=== PATIENT | female | born 1950 | race Caucasian/White ===

== ENCOUNTER → 2016-08-07 | Outpatient (CLI) | payer OTHER ==
[~2016-08-07] MED LIST: HYDROCODONE BI473 M1; LORTAB ELIXIR480 ML PO; PRILOSEC PO; REFRESH DRY EYE15 ML OU; RESTASIS32 EA OP
--- NOTE | ~2016-08-07 | EKG ---
PATIENT: FILOMENA SOARES UNIT #: [id number] Ventricular Rate: 72 BPM Atrial Rate: 72 BPM P-R Interval: 176 ms QRS Duration: 108 ms Q-T Interval: 414 ms QTC Calculation(Bezet): 453 ms P [place]: 57 degrees Calculated R [place]: -19 degrees Calculated T [place]: 33 degrees Diagnosis Line: Normal sinus rhythm Diagnosis Line: Normal ECG Diagnosis Line: When compared with ECG of 10-APR-2012 08:26, Diagnosis Line: No significant change was found Diagnosis Line: Confirmed by PAZ SANCHEZ MD ([id number]) on 08/08/2016 Diagnosis Line: 6:20:58 PM INTERPRETING MD: LAURA DOBSON
[2016-08-07 14:33] LABS: HEMATOCRIT 42.1 % (35.0-45.0); HEMOGLOBIN 14.4 gm/dL (12.0-16.0); MEAN CELL VOLUME 92.1 FL (83-96); MEAN CORPUSCULAR HEMOGLOBIN 31.4 PG (28-34); MEAN CORPUSCULAR HGB CONC 34.1 g/dL (30-36); MEAN PLATELET VOLUME 8.4 FL (6.5-11.5); RED BLOOD COUNT 4.57 X10e (3.90-5.30); RED CELL DISTRIBUTION WIDTH 14.6 % (11.0-15.5); WHITE BLOOD COUNT 13.5 X10e3 (4.0-10.5)
[2016-08-07 15:17] LABS: ALBUMIN SERUM 4.1 g/dL (3.5-5.0); BILIRUBIN,TOTAL 0.4 mg/dL (0.2-2.0); BUN/CREATININE RATIO 13.18; CALCIUM SERUM 9.5 mg/dL (8.4-10.2); CREATININE SERUM 2.2 mg/dL (0.6-1.4); GLOM FILT RATE Estimated 23.7 mL/min (>60); POTASSIUM 4.2 mmol/L (3.5-5.1); PROTEIN TOTAL SERUM 7.7 g/dL (6.0-8.3)
== END | disposition home or self-care (01) ==
LOC: CAMB 13:28
PROVIDERS: Orthopaedic Surgery
DX: Z01.818 Encounter for other preprocedural examination (principal); M65.341 Trigger finger, right ring finger
CPT/HCPCS: 36415; 80053; 85027; 93005

== ENCOUNTER → 2016-08-21 | Day surgery (SDC) | payer OTHER ==
--- NOTE | ~2016-08-21 | OR ---
Unit #: [id number] #: [id number] Patient: FILOMENA MASTERSON [id number] [address] [place], [place] [address] [id number] O MR#: [id number] NAME: FILOMENA MASTERSON ROOM: Date of Procedure: 08/21/2016 Admission Date: 08/21/2016 Surgeon: Salbador Davenport M.D. : 1950 Attending Physician: Salbador Davenport M.D. Primary Care Physician: Geronimo Longo M.D. OPERATIVE REPORT PREOPERATIVE DIAGNOSIS Right fourth trigger finger. POSTOPERATIVE DIAGNOSIS Right fourth trigger finger. PROCEDURE PERFORMED Right A1 nina release. ASSISTANTS 1. Mel Dominguez APRN, ALEXX. 2. Ab Herrera M.D. ANESTHESIA General. ESTIMATED BLOOD LOSS 5 mL. COMPLICATIONS None apparent. INDICATIONS FOR PROCEDURE Ms. Masterson is a 66-year-old female with a trigger finger affecting the right fourth digit. She has failed conservative management and elects to proceed with surgical intervention. Risks, benefits, and alternatives have been reviewed and she elected to proceed. DESCRIPTION OF PROCEDURE The patient was identified in the preoperative holding area. The operative site was marked. The patient was brought to the operating room, and placed supine on the operating table. She elected for general anesthetic. The right hand was then prepped and draped in sterile fashion. A HemaClear tourniquet was used to exsanguinate the arm. An incision was marked out in the distal palmar crease over the ring finger. Dissection was carried down through the subcutaneous tissues down to the flexor tendon sheath. Care was taken to protect the digital neurovascular bundles. These were, however, not dissected out formally. The A1 nina was identified distally in the incision and a release performed with a 15-blade knife and completed with tenotomy scissors from a proximal to distal direction. Once we had complete release out distally, we then completed the release out proximally. The flexor tendons were delivered Unit #: [id number] #: [id number] Patient: FILOMENA MASTERSON up out of the wound. There was no mass or lesion in the floor of the flexor tendon space. The tendons were inspected and there were no adhesions between the FDS and FDP. The wound was irrigated with sterile saline via bulb lavage. The tourniquet was removed. Hemostasis achieved with bipolar electrocautery. The wound was then closed with 3-0 nylon in a horizontal mattress fashion. A well-padded soft dressing was applied. DISPOSITION Stable to the recovery room. Dictated by... Kanu Ackerman/noemi TD: 08/21/2016 08:58 JOB #: [id number] OPERATIVE REPORT X Salbador Davenport MD PROCEDURE OPERATIVE NOTE
[2016-08-21 06:37] LABS: HEMATOCRIT 44.1 % (35.0-45.0); HEMOGLOBIN 14.7 gm/dL (12.0-16.0); MEAN CELL VOLUME 92.6 FL (83-96); MEAN CORPUSCULAR HEMOGLOBIN 30.9 PG (28-34); MEAN CORPUSCULAR HGB CONC 33.3 g/dL (30-36); MEAN PLATELET VOLUME 8.6 FL (6.5-11.5); RED BLOOD COUNT 4.76 X10e (3.90-5.30); RED CELL DISTRIBUTION WIDTH 14.4 % (11.0-15.5); WHITE BLOOD COUNT 13.3 X10e3 (4.0-10.5)
[2016-08-21 07:01] LABS: BUN/CREATININE RATIO 12.94; CALCIUM SERUM 9.6 mg/dL (8.4-10.2); CREATININE SERUM 1.7 mg/dL (0.6-1.4); GLOM FILT RATE Estimated 31.9 mL/min (>60); POTASSIUM 4.1 mmol/L (3.5-5.1)
== END | disposition home or self-care (01) ==
LOC: CSUR 05:45
PROVIDERS: Orthopaedic Surgery
DX: M65.341 Trigger finger, right ring finger (principal); Z90.89 Acquired absence of other organs; Z87.442 Personal history of urinary calculi; Z98.890 Other specified postprocedural states; Z90.49 Acquired absence of other specified parts of digestive tract
CPT/HCPCS: 80048; 85027; J0690; J1100; J1885; J2250; J2765; J3010

== ENCOUNTER 2016-11-05 00:28 | Emergency (ER) | payer OTHER ==
--- NOTE | ~2016-11-05 | CR6 ---
[facility] A Service of [facility] & [facility] RADIOLOGY TEXT RESULTS PATIENT: FILOMENA SOARES LOCATION: [facility] : [birth year] UNIT #: [id number] AGE: [address]: Darian Durán MD SEX: F ORDER DR: [id number] [facility] [address] [place]. [place], [place] [address] [id number] MR#: [id number] Acc #: [id number] NAME: FILOMENA SOARES : 1950 SEX: F STUDY DATE/TIME: 11/05/2016 1:10 UNIT: [facility] ROOM: STUDY DESCRIPTION: CR Abdomen Portable Sng View Attending Physician: Darian Durán M.D. Ordering Physician: Swati Coello M.D. Primary Care Physician: Primary Care Physician No MEDICAL IMAGING REPORT This report is preliminary unless electronic signature is present EXAM Abdominal radiograph INDICATION Right flank pain for the past 2 days. PROCEDURE Supine view of the abdomen. COMPARISON 07/27/2012. FINDINGS No visible radiodense urinary system calculus. Nonobstructed pattern. IMPRESSION No acute findings. Dictated by... Luis Alfredo Proctor M.D. THIS IS AN ELECTRONICALLY VERIFIED REPORT Luis Alfredo Proctor M.D. at 11/05/2016 9:58 PM VANNA/erica TD: 11/05/2016 08:44 JOB #: [id number] MEDICAL IMAGING REPORT Page 1 of 1 COPY
[2016-11-05 01:16] LABS: URINE SOURCE CLEAN CATCH
[2016-11-05 01:21] LABS: URINE APPEARANCE CLEAR; URINE BILIRUBIN NEG (NEG); URINE BLOOD 1+ (NEG); URINE COLOR YELLOW; URINE GLUCOSE NEG (NEG); URINE KETONE NEG (NEG); URINE LEUKOCYTE ESTERASE 2+ (NEG); URINE NITRATE NEG (NEG); URINE PROTEIN TRACE (NEG); URINE SPECIFIC GRAVITY 1.016 (1.003-1.035); URINE UROBILINOGEN 0.2 MG/DL (NEG)
[2016-11-05 01:23] LABS: CULTURE INDICATED? YES; U HYALINE CASTS AUWI 0-2 /[LPF]; URINE BACTERIA AUWI NEG (NEGATIVE); URINE SQUAMOUS EPITHELIAL CELL NONE SEEN /[HPF]; UWBCS1 AUWI 25-50 (0-5)
[2016-11-05 02:02] LABS: BASOPHIL# 0.2 X10e3 (0-0.3); BASOPHIL% 0.8 % (0-2.5); EOSINOPHIL# 0.2 X10e3 (0-0.7); EOSINOPHIL% 0.9 % (0.0-7.0); HEMATOCRIT 43.8 % (35.0-45.0); HEMOGLOBIN 14.7 gm/dL (12.0-16.0); LYMPHOCYTE% 10.2 % (17.0-45.0); MEAN CELL VOLUME 92.3 FL (83-96); MEAN CORPUSCULAR HGB CONC 33.6 g/dL (30-36); MEAN PLATELET VOLUME 8.9 FL (6.5-11.5); MONOCYTE# 1.3 X10e3 (0-1.0); MONOCYTE% 6.6 % (3.0-12.0); NEUTROPHIL# 15.9 X10e3 (1.5-7.1); NEUTROPHIL% 81.5 % (40-75); PLATELET COUNT 238 X10e3 (140-420); RED BLOOD COUNT 4.75 X10e (3.90-5.30); RED CELL DISTRIBUTION WIDTH 14.1 % (11.0-15.5); WHITE BLOOD COUNT 19.5 X10e3 (4.0-10.5)
[2016-11-05 02:09] LABS: DIFF IND YES
[2016-11-05 02:19] LABS: ALBUMIN SERUM 4.2 g/dL (3.5-5.0); BILIRUBIN, DIRECT 0.1 mg/dL (0.0-0.2); BILIRUBIN,INDIRECT 0.9 mg/dL (0.0-0.9); BUN/CREATININE RATIO 11.76; CALCIUM SERUM 9.5 mg/dL (8.4-10.2); CREATININE SERUM 1.7 mg/dL (0.6-1.4); GLOM FILT RATE Estimated 30.7 mL/min (>60); POTASSIUM 3.7 mmol/L (3.5-5.1); PROTEIN TOTAL SERUM 8.2 g/dL (6.0-8.3)
[2016-11-05 02:27] LABS: PLATELET ESTIMATE NORMAL (NORMAL)
[2016-11-05 02:28] LABS: RBC NORMAL YES
== END 2016-11-05 03:22 | disposition home or self-care (01) ==
LOC: CED 00:28
PROVIDERS: Emergency Medicine
DX: N30.00 Acute cystitis without hematuria (principal); F17.200 Nicotine dependence, unspecified, uncomplicated; Z87.442 Personal history of urinary calculi
CPT/HCPCS: 36415; 74000; 80048; 80076; 81003; 85025; 87086; 96361; 96374; 96375; 99284; J1885; J2270